=== PATIENT | male | born 1960 | race Caucasian/White ===

== ENCOUNTER 2016-06-29 10:55 | Day surgery (SDC) | payer BC ==
[2016-06-27 12:31] LABS: BASOPHILS 0.3 %; BASOPHILS ABSOLUTE 0.02 10/3/uL (0.0-0.16); EOSINOPHILS 2.3 %; EOSINOPHILS ABSOLUTE 0.14 10/3/uL (0.0-0.53); HEMATOCRIT 41.6 % (40.0-51.0); HEMOGLOBIN 15.6 g/dL (13.6-17.8); IMMATURE GRANULOCYTES 0.2 %; IMMATURE GRANULOCYTES ABSOLUTE 0.01 10/3/uL (0.0-0.11); LYMPHOCYTES 30.7 %; LYMPHOCYTES ABSOLUTE 1.86 10/3/uL (0.67-4.30); MEAN CORPUS HGB CONC 37.5 g/dL (32.0-36.0); MEAN CORPUSCULAR HEMOGLOB 32.3 pg (26.0-34.0); MEAN CORPUSCULAR VOLUME 86.1 fL (80-100); MEAN PLATELET VOLUME 10.1 fL (9.2-13.0); MONOCYTES 7.9 %; MONOCYTES ABSOLUTE 0.48 10/3/uL (0.21-1.20); NEUTROPHILS 58.6 %; NEUTROPHILS ABSOLUTE 3.54 10/3/uL (2.02-8.40); PLATELET COUNT 218 10/3/uL (150-400); RBC DISTRIBUTION WIDTH 12.7 % (12.0-16.0); RED CELL COUNT 4.83 10/6/uL (4.7-6.1); WHITE BLOOD CELLS 6.1 10/3/uL (4.5-10.5)
[2016-06-27 12:36] LABS: MANUAL DIFF NO %
[2016-06-27 12:45] LABS: A/G RATIO 1.3 (0.7-1.9); ALBUMIN 3.8 G/DL (3.5-5.0); ALKALINE PHOSPHATASE 63 U/L (45-117); BUN (BLOOD UREA NITROGEN) 12 MG/DL (6-23); CALCIUM, SERUM 8.7 MG/DL (8.5-10.4); CHLORIDE, SERUM 109 MMOL/L (96-112); CO2 (CARBON DIOXIDE) 28 MMOL/L (24-34); CREATININE 0.76 MG/DL (0.70-1.30); GFR AFRICAN AMERICAN 119 ML/MIN (>=60); GFR NON AFRICAN AMERICAN 103 ML/MIN (>=60); GLOBULIN 2.9 G/DL (2.5-4.1); GLUCOSE, SERUM 82 MG/DL (60-99); POTASSIUM, SERUM 4.2 MMOL/L (3.5-5.3); PREALBUMIN 29.4 MG/DL (17.0-43.0); SGOT(AST) 23 U/L (5-40); SGPT(ALT) 35 U/L (5-65); SODIUM, SERUM 144 MMOL/L (135-148); TOTAL PROTEIN 6.7 G/DL (6.0-8.5)
--- NOTE | ~2016-06-29 | OP ---
Record Of Operation [facility] [address] [place]. [address] NAME: HENRY ROJAS : 60 STATUS : [facility]#: [id number] AGE: 55 ADM/REG DATE : 06/29/16 MR#: [id number] REPORT SERV DATE: 06/29/16 DICTATED BY: HOLLEY SOLANO JR. DATE: 06/29/16 REPORT STATUS : Draft TRANSCRIBED BY: SHAHRAM DATE: 06/29/16 DATE OF PROCEDURE: SURGEON: Holley Solano M.D. LICENSED MASSAGE PRACTITIONER: Landon Lee. PROCEDURE: Repair of incarcerated recurrent left inguinal hernia. PREOPERATIVE DIAGNOSIS: Incarcerated recurrent left inguinal hernia. POSTOPERATIVE DIAGNOSIS: Incarcerated recurrent left inguinal hernia. ANESTHESIA: General. INDICATIONS: This patient had previous inguinal hernia repair at another facility many years ago. He has developed recurrence which became incarcerated approximately a week ago and repair was indicated. FINDINGS: On exploration of the inguinal canal, there is extensive scarring from previous surgery and suture material, there was no evidence of any mesh present. The hernia is in the medial portion of the inguinal canal just lateral to the pubic tubercle, and this is a portion of properitoneal fat which is herniated into the sac which is incarcerated, there is some discoloration, but upon opening the sac, there is some fluid, no frankly gangrenous material. With enlarging the opening, this was able to be reduced, the redundant sac was excised, and this was repaired with a plug and tension-free mesh repair. The cord structures were identified and preserved. DESCRIPTION OF PROCEDURE: With adequate general anesthesia, the patient was placed in supine position, the abdomen was prepped and draped sterilely. 0.5% Marcaine was also used for local infiltration of anesthesia. A curvilinear incision was made in the groin. The incision was deepened down through the subcutaneous tissues, the external oblique was divided, underlying structures were dissected sharply, the cord was identified and encircled with a Russ drain, and then with blunt and sharp dissection, the ring of the sac of the hernia was enlarged to allow opening and reduction of the incarcerated contents. There was no evidence of any gangrenous material and no incarcerated bowel. Then, a large polypropylene plug was placed into the area of the defect, and this was secured to the pubic tubercle and to the conjoined tendon with a mattress suture of 0 Novafil. Then, the screen was used to perform a tension-free repair of the floor, this was secured again to the pubic tubercle, conjoined tendon, superiorly transversalis, and inferior inguinal ligament. The precut defect was placed around the cord at the internal ring, and this produced a satisfactory tension-free repair. Then, the external oblique was closed over this with running 2-0 Vicryl, and then the subcutaneous tissues were closed with Vicryl and skin with dermal Monocryl. Sterile dressings were applied. The patient tolerated the procedure well and left the operating room in satisfactory condition. Record Of Operation [facility] [id number] [facility] [place]. [address] NAME: HENRY ROJAS : 60 STATUS : [facility]#: [id number] AGE: 55 ADM/REG DATE : 06/29/16 MR#: [id number] REPORT SERV DATE: 06/29/16 DICTATED BY: HOLLEY SOLANO JR. DATE: 06/29/16 REPORT STATUS : Draft TRANSCRIBED BY: SHAHRAM DATE: 06/29/16 ESTIMATED BLOOD LOSS: 30 mL. YISSEL/SHAHRAM Holley Solano Jr., M.D. / [id number] CC: Qiana Carr Jr., M.D.
[~2016-06-29 10:55] MED LIST: PRAVAC PO; PREV30 PO
== END 2016-06-29 21:06 | disposition home or self-care (01) ==
LOC: SDC 10:55
PROVIDERS: Specialist
PROC: 0YQ60ZZ Repair Left Inguinal Region, Open Approach (ICD-10-PCS; principal; 2016-06-29 12:45)
DX: K40.31 Unilateral inguinal hernia, with obstruction, without gangrene, recurrent (principal); E78.00 Pure hypercholesterolemia, unspecified; K21.9 Gastro-esophageal reflux disease without esophagitis; Z98.890 Other specified postprocedural states
CPT/HCPCS: 71020; 80053; 83036; 84134; 85025; 88302; 93005; A9270-GY; C1781; J0690; J1170; J2250; J2270; J2405; J2710; J3010